=== PATIENT | female | born 1960 ===

== ENCOUNTER 2016-07-31 10:15 | Outpatient (CLI) | payer OTHER ==
[2015-11-17 10:14] VITALS: O2SAT 96
== END 2016-07-31 10:16 | disposition home or self-care (01) ==
LOC: CONVCARE 10:15
PROVIDERS: ATTEND Orthopaedic Surgery
DX: M16.0 Bilateral primary osteoarthritis of hip (principal)
CPT/HCPCS: 73502

== ENCOUNTER 2017-02-06 10:06 | Day surgery (SDC) | payer OTHER ==
[~2017-02-06 10:06] MED LIST: LIDOCAINE HCL 1% MPF SOL ONE; PROPOFOL 500 MG/50 ML EMU IV ONE
[2017-02-06] MEDS ORDERED: PROPOFOL 500 MG/50 ML EMU IV ONE (11:16)
[2017-02-06] MEDS ORDERED: ONDANSETRON HCL 4 MG/2 ML SOL ONE (11:16)
[2017-02-06 11:55] VITALS: BP 130/80; PULSE 61; RESP 18; TEMP 97.5; O2SAT 98
== END 2017-02-06 12:19 | disposition home or self-care (01) ==
LOC: SURG 10:06
PROVIDERS: ATTEND Internal Medicine Gastroenterology
DX: Z12.11 Encounter for screening for malignant neoplasm of colon (principal); Z86.010 Personal history of colon polyps; Z83.71 Family history of colonic polyps; K63.5 Polyp of colon; D12.5 Benign neoplasm of sigmoid colon; K62.1 Rectal polyp; K57.30 Diverticulosis of large intestine without perforation or abscess without bleeding; K64.8 Other hemorrhoids
CPT/HCPCS: 45380; 45381; 45385; 99001; J2001; J2405; J2704 ×2

== ENCOUNTER 2017-02-19 15:05 | Outpatient (CLI) | payer OTHER ==
[2017-02-06 11:55] VITALS: O2SAT 98
== END 2017-02-19 15:06 | disposition home or self-care (01) ==
LOC: CONVCARE 15:05
PROVIDERS: ATTEND Orthopaedic Surgery
DX: M16.12 Unilateral primary osteoarthritis, left hip (principal)

== ENCOUNTER 2017-06-04 10:54 | Outpatient (CLI) | payer OTHER ==
[2017-02-06 11:55] VITALS: O2SAT 98
== END 2017-06-04 10:55 | disposition home or self-care (01) ==
LOC: CONVCARE 10:54
PROVIDERS: ATTEND Orthopaedic Surgery
DX: M16.12 Unilateral primary osteoarthritis, left hip (principal)
CPT/HCPCS: 73502

== ENCOUNTER 2017-06-26 07:44 | Day surgery (SDC) | payer OTHER ==
[2017-06-26] MEDS ORDERED: PROPOFOL 500 MG/50 ML EMU IV ONE ×2 (07:50→09:49)
[2017-06-26] MEDS ORDERED: LIDOCAINE HCL 1% MPF SOL ONE (07:50)
[2017-06-26 10:16] VITALS: TEMP 97.3
[2017-06-26 10:41] VITALS: RESP 20
[2017-06-26 10:48] VITALS: BP 106/71; PULSE 71; O2SAT 97
== END 2017-06-26 11:04 | disposition home or self-care (01) ==
LOC: SURG 07:44
PROVIDERS: ATTEND Internal Medicine Gastroenterology
DX: K63.5 Polyp of colon (principal); Z86.010 Personal history of colon polyps; K57.30 Diverticulosis of large intestine without perforation or abscess without bleeding; K64.8 Other hemorrhoids; K62.1 Rectal polyp; K21.9 Gastro-esophageal reflux disease without esophagitis; D64.9 Anemia, unspecified; R14.0 Abdominal distension (gaseous); K22.2 Esophageal obstruction; K44.9 Diaphragmatic hernia without obstruction or gangrene
CPT/HCPCS: 43239; 45380; 99001; J2001; J2704 ×2

== ENCOUNTER 2017-07-14 12:53 | Emergency (ER) | payer OTHER ==
[2017-07-14 13:04] VITALS: RESP 20; O2SAT 100
[2017-07-14] MEDS ORDERED: HYDROMORPHONE HCL 2 MG/ML SOL IM ONE (13:35)
[2017-07-14] MEDS ORDERED: HYDROMORPHONE 1 MG/ML SYRINGE ONE (13:47)
[2017-07-14 14:12] VITALS: BP 145/94; PULSE 83; TEMP 97.6
== END 2017-07-14 14:52 | disposition home or self-care (01) ==
LOC: ED 12:53
DX: M25.552 Pain in left hip (principal); N18.5 Chronic kidney disease, stage 5; M15.0 Primary generalized (osteo)arthritis
CPT/HCPCS: 73521; 99283; J1170

== ENCOUNTER 2017-11-05 12:18 | Outpatient (CLI) | payer OTHER ==
[2017-07-14 13:04] VITALS: O2SAT 100
== END 2017-11-05 12:19 | disposition home or self-care (01) ==
LOC: RAD 12:18
PROVIDERS: ATTEND Orthopaedic Surgery
DX: Z47.1 Aftercare following joint replacement surgery (principal); Z96.642 Presence of left artificial hip joint
CPT/HCPCS: 73502

== ENCOUNTER 2018-01-01 06:52 | Day surgery (SDC) | payer OTHER ==
[2018-01-01] MEDS ORDERED: LIDOCAINE HCL 1% MPF 30 SOL ONE (07:34)
[2018-01-01] MEDS ORDERED: PROPOFOL 500 MG/50 ML EMU IV ONE (07:34)
[2018-01-01 09:10] VITALS: BP 11/74; PULSE 59; RESP 18; TEMP 97.8; O2SAT 99
== END 2018-01-01 09:45 | disposition home or self-care (01) ==
LOC: SURG 06:52
PROVIDERS: ATTEND Internal Medicine Gastroenterology
DX: R11.2 Nausea with vomiting, unspecified (principal); K22.2 Esophageal obstruction; K44.9 Diaphragmatic hernia without obstruction or gangrene; L53.8 Other specified erythematous conditions; K31.89 Other diseases of stomach and duodenum
CPT/HCPCS: 99001; J2001; J2704

== ENCOUNTER 2018-01-16 13:32 | Emergency (ER) | payer OTHER ==
[2018-01-16 13:47] VITALS: PULSE 72; RESP 18; TEMP 98.2
[2018-01-16 14:36] VITALS: BP 116/84; O2SAT 96
== END 2018-01-16 14:35 | disposition home or self-care (01) ==
LOC: ED 13:32
DX: I63.9 Cerebral infarction, unspecified (principal)
CPT/HCPCS: 99283; 99284

== ENCOUNTER 2018-01-21 11:25 | Outpatient (CLI) | payer OTHER ==
[2018-01-01 09:10] VITALS: O2SAT 99
== END 2018-01-21 11:26 | disposition home or self-care (01) ==
LOC: CONVCARE 11:25
PROVIDERS: ATTEND Orthopaedic Surgery
DX: Z96.642 Presence of left artificial hip joint (principal); Z51.89 Encounter for other specified aftercare
CPT/HCPCS: 73502

== ENCOUNTER 2018-06-08 16:38 | Emergency (ER) | payer OTHER ==
[2018-06-08 16:47] VITALS: BP 121/76; PULSE 93; RESP 16; TEMP 97.6; O2SAT 93
[2018-06-08 17:04] LABS: APPEARANCE,URINE Slightly Cloudy; BILIRUBIN,URINE NEGATIVE (NEGATIVE); COLOR,URINE Light yellow; GLUCOSE, URINE (UA) NEGATIVE (NEGATIVE); KETONES,URINE NEGATIVE (NEGATIVE); LEUKOCYTE ESTERASE ,URINE TRACE (NEGATIVE); NITRATE,URINE NEGATIVE (NEGATIVE); OCCULT BLOOD,URINE TRACE LYSED (NEG-TRACE); UROBILINOGEN,URINE 0.2 (0.2-1.0 EU)
[2018-06-08 17:15] LABS: BACTERIA 2+ (< 1+); CRYSTALS NEGATIVE (0-3 AVE/HPF); RBC,URINE NEG (0-3AV/HPF); WBC,URINE 0-1 (0-5AV/HPF)
== END 2018-06-08 17:34 | disposition home or self-care (01) ==
LOC: ED 16:38
DX: N39.0 Urinary tract infection, site not specified (principal)
CPT/HCPCS: 81001; 87088; 99282; 99283

== ENCOUNTER 2018-06-24 11:30 | Outpatient (CLI) | payer OTHER ==
[2018-06-08 16:47] VITALS: O2SAT 93
== END 2018-06-24 11:31 | disposition home or self-care (01) ==
LOC: RAD 11:30
PROVIDERS: ATTEND Orthopaedic Surgery
DX: Z98.890 Other specified postprocedural states (principal)
CPT/HCPCS: 73502

== ENCOUNTER 2018-11-11 13:26 | Outpatient (CLI) | payer BC, OTHER ==
[2018-06-08 16:47] VITALS: O2SAT 93
== END 2018-11-11 13:27 | disposition home or self-care (01) ==
LOC: CONVCARE 13:26
PROVIDERS: ATTEND Orthopaedic Surgery
DX: Z51.89 Encounter for other specified aftercare (principal); Z98.890 Other specified postprocedural states; Z96.642 Presence of left artificial hip joint
CPT/HCPCS: 73502

== ENCOUNTER 2018-11-11 14:17 | Emergency (ER) | payer OTHER ==
[2018-11-11 14:26] VITALS: BP 127/86; PULSE 69; RESP 18; TEMP 98.2; O2SAT 100
[2018-11-11] MEDS ORDERED: KETOROLAC TROMETHAMINE 30 MG/ML SOL IM ONE (14:44)
== END 2018-11-11 15:40 | disposition home or self-care (01) ==
LOC: ED 14:17
DX: M79.602 Pain in left arm (principal); Z51.89 Encounter for other specified aftercare; Z98.890 Other specified postprocedural states; Z96.642 Presence of left artificial hip joint
CPT/HCPCS: 73060; 73502; 99282; 99283

== ENCOUNTER 2018-12-02 13:17 | Outpatient (CLI) | payer OTHER ==
[2018-11-11 14:26] VITALS: O2SAT 100
== END 2018-12-02 13:18 | disposition home or self-care (01) ==
LOC: CONVCARE 13:17
PROVIDERS: ATTEND Orthopaedic Surgery
DX: M25.512 Pain in left shoulder (principal); M75.42 Impingement syndrome of left shoulder
CPT/HCPCS: 72040